=== PATIENT | male | born 1960 | race Caucasian/White ===

== ENCOUNTER 2024-03-12 16:36 | Inpatient (IN) ==
[2024-03-12] MEDS: Lactated Ringers 1000 ml BAG 1,000 ML IV ONE (17:46)
[2024-03-12 18:10] LABS: ABS Basophils 0.1 10^3/uL (0.0-0.1); ABS Eosinophils 0.3 10^3/uL (0.0-0.5); ABS Lymphocytes 0.9 10^3/uL (1.0-4.8); ABS Monocytes 0.7 10^3/uL (0.0-1.1); ABS Neutrophils 5.3 10^3/uL (1.5-7.6); ABS Nucleated RBC 0.04 10^3/ul; Eosinophil % 3.9 %; Hematocrit 19.7 % (38-53); Hemoglobin 5.7 g/dL (13.2-16.3); INR 1.44 (0.83-1.13); Lymphocyte % 12.5 %; Mean Corpuscular Hemoglobin 20.7 pg (27-33); Mean Corpuscular Hgb Conc 29.1 g/dL (31-36); Mean Corpuscular Volume 71.1 fL (80-97); Mean Platelet Volume 7.6 fL (7.5-11.2); Nucleated Red Blood Cells % 0.5 %/100WBC (0.0-0.8); Platelet Count 268 10^3/uL (150-450); Red Blood Count 2.77 10^6/uL (4.06-5.63); Red Cell Distribution Width 21.7 % (12-17); White Blood Count 7.3 10^3/uL (3.6-10.2)
[2024-03-12 18:41] LABS: Albumin 3.6 g/dL (3.2-5.2); Albumin/Globulin Ratio 1.3 (1-3); C Reactive Protein 29.35 mg/L (<8.01); Calcium 8.9 mg/dL (8.6-10.3); Creatinine, Serum 0.6 mg/dL (0.67-1.17); Globulin 2.7 g/dL (2-4); Magnesium 1.7 mg/dL (1.9-2.7); Potassium 4.2 mmol/L (3.5-5.0); Total Bilirubin 0.6 mg/dL (0.2-1.0); Total Protein 6.3 g/dL (6.4-8.9); eGFR CKD-EPI 109.1 (>60)
[2024-03-12 18:44] LABS: Urine Appearance Clear; Urine Bilirubin Negative (Negative); Urine Blood Negative (Negative); Urine Color Light-Yellow; Urine Glucose Trace (Negative); Urine Ketones Negative (Negative); Urine Nitrite Negative (Negative); Urine Protein Negative (Negative); Urine Urobilinogen Negative (Negative)
[2024-03-12] MEDS: Iohexol 300 (CONTRAST) 10 ML SDV IV ONE (19:30)
[2024-03-12] MEDS ORDERED: LORazepam 2 mg VIAL 1 ml IV PUSH SCH (20:00)
[2024-03-12] MEDS: Thiamine 100 MG/ML 2 ml VIAL (200 mg) IM ONE (20:14)
[2024-03-12] MEDS: Pantoprazole VIAL 40 MG VIAL IV ONE (20:14)
[2024-03-12] MEDS: Multivitamins/Minerals TAB PO SCH (20:36)
[2024-03-12 21:17] LABS: Alcohol, S < 13 mg/dL (<13)
[2024-03-12 21:30] LABS: % Iron Saturation 4 % (15-55); .Transferrin 356 mg/dL (203-362); Iron < 20 ug/dL (50-212); Magnesium 1.7 mg/dL (1.9-2.7); Total Iron Binding Capacity 498 mcg/dL (250-450); Unsaturated Iron Binding 478 ug/dL
[2024-03-12 21:45] LABS: TSH Ultra Thyroid Stim Horm 4.79 mcIU/mL (0.34-5.60)
[2024-03-12] MEDS: Magnesium Sulfate 2 gm BAG 2 GM/50 ML BAG IVPB ONE (21:49)
[2024-03-12 21:51] LABS: Ferritin 8.6 ng/mL (24-336)
[2024-03-12 21:56] LABS: Folate 14.74 ng/mL (5.90-24.80)
[2024-03-12] MEDS: Iohexol 350 (CONTRAST) 500 ML MDV IV ONE (23:02)
[2024-03-12] MEDS: Nicotine PATCH 7 MG/24 HR PATCH TRANSDERM SCH (23:50)
[2024-03-12] MEDS: Furosemide 40 mg/4 ml IV VIAL IV ONE (23:53)
[2024-03-13 01:45] LABS: Hematocrit 20.9 % (38-53); Hemoglobin 6.5 g/dL (13.2-16.3)
[2024-03-13 04:58] LABS: ABS Basophils 0.1 10^3/uL (0.0-0.1); ABS Eosinophils 0.2 10^3/uL (0.0-0.5); ABS Lymphocytes 0.9 10^3/uL (1.0-4.8); ABS Monocytes 0.8 10^3/uL (0.0-1.1); ABS Neutrophils 5.4 10^3/uL (1.5-7.6); ABS Nucleated RBC 0.03 10^3/ul; Eosinophil % 2.7 %; Hematocrit 21.6 % (38-53); Hemoglobin 6.6 g/dL (13.2-16.3); Lymphocyte % 12.3 %; Mean Corpuscular Hemoglobin 22.5 pg (27-33); Mean Corpuscular Hgb Conc 30.8 g/dL (31-36); Mean Platelet Volume 7.3 fL (7.5-11.2); Nucleated Red Blood Cells % 0.4 %/100WBC (0.0-0.8); Platelet Count 228 10^3/uL (150-450); Red Blood Count 2.95 10^6/uL (4.06-5.63); Red Cell Distribution Width 21.6 % (12-17); White Blood Count 7.5 10^3/uL (3.6-10.2)
[2024-03-13 05:37] LABS: Albumin 3.4 g/dL (3.2-5.2); Albumin/Globulin Ratio 1.5 (1-3); Calcium 8.5 mg/dL (8.6-10.3); Creatinine, Serum 0.62 mg/dL (0.67-1.17); Globulin 2.3 g/dL (2-4); HDL Cholesterol 27.6 mg/dL; Potassium 4.3 mmol/L (3.5-5.0); Total Bilirubin 1.2 mg/dL (0.2-1.0); Total Protein 5.7 g/dL (6.4-8.9); eGFR CKD-EPI 108.1 (>60)
[2024-03-13 09:20] LABS: Hematocrit 24.9 % (38-53); Hemoglobin 7.7 g/dL (13.2-16.3); Mean Corpuscular Hemoglobin 22.9 pg (27-33); Mean Corpuscular Hgb Conc 30.9 g/dL (31-36); Mean Corpuscular Volume 74.2 fL (80-97); Mean Platelet Volume 7.2 fL (7.5-11.2); Platelet Count 209 10^3/uL (150-450); Red Blood Count 3.36 10^6/uL (4.06-5.63); Red Cell Distribution Width 22.6 % (12-17); White Blood Count 6.4 10^3/uL (3.6-10.2)
[2024-03-13] MEDS: Nicotine GUM 2MG FRUIT FLAVOR PO PRN (11:01)
[2024-03-13] MEDS: Pantoprazole VIAL 40 MG VIAL IV SCH (11:02)
[2024-03-13] MEDS ORDERED: Sulfur Hexaflouride MICROSPHR 25 MG VIAL ONE (14:28)
[2024-03-13] MEDS: Sulfur Hexaflouride MICROSPHR 25 MG VIAL IV ONE (14:48)
[2024-03-13] MEDS ORDERED: Midazolam 2 mg/2 ml VIAL 1 mg/ml 2 ml VIAL (2 mg) ONE (15:51)
[2024-03-13 17:37] LABS: Hematocrit 25.4 % (38-53); Hemoglobin 7.9 g/dL (13.2-16.3); Mean Corpuscular Hemoglobin 23.3 pg (27-33); Mean Corpuscular Hgb Conc 31.2 g/dL (31-36); Mean Corpuscular Volume 74.7 fL (80-97); Mean Platelet Volume 7.5 fL (7.5-11.2); Platelet Count 211 10^3/uL (150-450); Red Blood Count 3.41 10^6/uL (4.06-5.63); Red Cell Distribution Width 22.4 % (12-17); White Blood Count 8.8 10^3/uL (3.6-10.2)
[2024-03-13] MEDS: Furosemide 20 mg/2 ml IV VIAL IV SLOW PU ONE (18:40)
[2024-03-13] MEDS: Octreotide Acetate 50 MCG in NS 0.9% 50 ML 50 ML IV ONE (18:40)
[2024-03-13] MEDS ORDERED: Thiamine IV 100 MG/ML VIAL (only for Bannana Bags !) IVPB SCH (19:00)
[2024-03-13] MEDS: Octreotide Acetate 500 MCG in NS 0.9% 100 ml BAG 100 ML IV SCH (19:02)
[2024-03-13] MEDS ORDERED: Thiamine IV 100 MG in NS 0.9% 50 ML Q24H IV SCH (19:30)
[2024-03-13] MEDS ORDERED: cefTRIAXone 1 gm/50 mL D5W 1 GM/50 ML BAG IV SCH (20:00)
[2024-03-13 20:34] VITALS: BP 128/77
[2024-03-14 17:24] LABS: Vitamin B12 574 pg/mL (180-914)
== END 2024-03-13 20:45 | disposition short-term general hospital (02) | DRG 663 ==
LOC: ED 16:36 → EDHOLD 20:00 → MEDTELE 03-13 12:45
PROVIDERS: ADMIT Internal Medicine; ATTEND Internal Medicine
PROC: O.GIEGD (2024-03-13 15:35)